=== PATIENT | male | born 1965 | race Caucasian/White ===

== ENCOUNTER 2016-10-20 11:30 | Observation (INO) | payer BC ==
[~2016-10-20] VITALS: Ht 185.4 cm; Wt 83.5 kg
[2016-10-20 12:07] VITALS: BP 136/90; BMI 23.9
--- NOTE | 2016-10-20 12:15 | NUR ---
RECEIVED PATIENT VIA WHEELCHAIR A DIRECT ADMIT FROM [facility] WITH ABDOMINAL PAIN AND NAUSEA. ACCOMPANIED BY FAMILY. RATES PAIN 8-05/07. ADMISSION WORK COMPLETED. IV SITED TO RIGHT WRIST X1 STICK WITH 20G CATHETER.
[2016-10-20] MEDS ORDERED: MIRALAX17 GM PO (12:19)
[2016-10-20] MEDS ORDERED: ADDERALL 20 MG20 M1 PO (12:20)
--- NOTE | 2016-10-20 13:09 | NUR ---
DILAUDID 0.5MG ADMINISTERED PER ORDERS FOR C/O PAIN 05/07.
[2016-10-20 13:13] LABS: BASOPHILS 0 % (0.0-2.0); EOSINOPHILS 0.1 % (0-7); HEMATOCRIT 44.2 % (42.0-54.0); HEMOGLOBIN 15.3 g/dL (13.5-17.5); IMMATURE GRANULOCYTES 0.3 % (0-5); LYMPHOCYTES 10.4 % (15-50); MCH 30.4 pg (26.0-34.0); MCHC 34.6 g/dL (31.0-37.0); MCV 87.9 fL (80.0-100.0); MEAN PLATELET VOLUME 9.4 fL (7.4-10.4); MONOCYTES 10.2 % (2-11); PLATELET COUNT 249 10x3/uL (130-400); RBC 5.03 10x6/uL (4.20-6.10); RDW 12.5 % (11.5-14.5); WBC 18.1 10x3/uL (4.8-10.8)
[2016-10-20 13:33] LABS: ALBUMIN 3.7 g/dL (3.4-5.0); ALKALINE PHOSPHATASE 62 U/L (46-116); ALT (SGPT) 17 U/L (10-68); AMYLASE - SERUM 37 U/L (25-115); CALC OSMOLALITY 270 mosm/kg (275-300); CALCIUM 9.3 mg/dL (8.5-10.1); CARBON DIOXIDE 29.8 mmol/L (21.0-32.0); CHLORIDE - SERUM 100 mmol/L (98-107); CREATININE - SERUM 0.9 mg/dL (0.6-1.3); GLUCOSE 103 mg/dL (74-106); LIPASE 178 U/L (73-393); POTASSIUM - SERUM 3.8 mmol/L (3.5-5.1); PROTEIN - SERUM 7.4 g/dL (6.4-8.2); SODIUM 136 mmol/L (136-145); UREA NITROGEN 11 mg/dL (7-18); eGFR NON AFRICAN AMERICAN > 90 mL/min (90-120)
--- NOTE | 2016-10-20 18:00 | NUR ---
RECEIVED FROM [facility] POST APPENDECTOMY. VS STABLE. THREE SURGICAL INCISIONS TO LEFT ABDOMEN. BANDAIDS INTACT. FAMILY AT BEDSIDE.
[2016-10-20 18:06] VITALS: BP 102/68
--- NOTE | 2016-10-20 19:32 | NUR ---
AWAKE,ALERT. TRAMADOL 50 MG GIVEN PO PER REQUEST FOR PAIN 04/06. NS INFUSING TO RIGHT FOREARM WITHOUT REDNESS OR EDEMA NOTED. BANDAIDS INTACT TO ABD INCISIONS WIHTOUT DRAINAGE NOTED. TOLERATING CL LIQUID DIET. CL IN REACH.
[2016-10-21] VITALS: BP 120/69
--- NOTE | 2016-10-21 02:07 | NUR ---
AROUSES EASILY TO VERBAL STIMULE. NO DISTRESS NOTED. CL IN REACH.
[2016-10-21 04:00] VITALS: BP 133/62
--- NOTE | 2016-10-21 05:09 | NUR ---
PT IS ASLEEP WITH EASY RESPIRATIONS AND NO DISTRESS NOTED. THE ROOM IS DARK WITH THE TV ON THE ONLY LIGHT. THE BED IS LOW, RAILS UP X'S 2 WITH THE CALL LIGHT AT HAND.
--- NOTE | 2016-10-21 05:18 | NUR ---
AWAKE,COMPLAINS OF INCISIONAL PAIN. DILAUDID 0.5 MG GIVEN PER REQUEST. CL IN REACH.
[2016-10-21 05:43] LABS: BASOPHILS 0.1 % (0.0-2.0); EOSINOPHILS 0.1 % (0-7); HEMOGLOBIN 13.1 g/dL (13.5-17.5); IMMATURE GRANULOCYTES 0.3 % (0-5); LYMPHOCYTES 16.5 % (15-50); MCH 30.2 pg (26.0-34.0); MCHC 33.6 g/dL (31.0-37.0); MEAN PLATELET VOLUME 9.8 fL (7.4-10.4); MONOCYTES 10.9 % (2-11); NEUTROPHILS 72.1 % (40-80); PLATELET COUNT 278 10x3/uL (130-400); RBC 4.34 10x6/uL (4.20-6.10); RDW 12.9 % (11.5-14.5); WBC 14.5 10x3/uL (4.8-10.8)
[2016-10-21 06:00] LABS: BILIRUBIN - TOTAL 0.8 mg/dL (0.2-1.3); CALCIUM 8.6 mg/dL (8.5-10.1); CARBON DIOXIDE 27.3 mmol/L (21.0-32.0); PROTEIN - SERUM 6.4 g/dL (6.4-8.2)
[2016-10-21 06:10] LABS: MCV 89.9 fL (80.0-100.0)
[2016-10-21 06:13] LABS: ANION GAP 12.1 mmol/L (8-16); CREATININE - SERUM 1.3 mg/dL (0.6-1.3); POTASSIUM - SERUM 4.4 mmol/L (3.5-5.1)
--- NOTE | 2016-10-21 07:22 | NUR ---
PT SITTING IN BED, STATES HE'S ONLY IN PAIN WHEN HE MOVES A CERTAIN WAY, NO OTHER COMPLAINTS, BED LOWEST POSITION, CALL LIGHT IN REACH, WILL CONTINUE TO MONITOR
--- NOTE | 2016-10-21 08:40 | NUR ---
PT SEEN FOR INVOICE CONTROL CLERK NOTE. STATES PAIN IS CONTROLLED AT 6 PRESENTLY-WAS AT A 8 WHEN TRAMADOL GIVEN EARILER. INSTRUCTED PATIENT THAT HE WILL NEED TO BE OUT OF BED AND AMBULATING IN HALLWAY LATER THIS AM. PASSING GAS. FAMILY AT BEDSIDE. CALL LIGHT IN REACH
[2016-10-21 08:43] VITALS: BP 113/69
--- NOTE | 2016-10-21 12:16 | NUR ---
PT SITTING IN CHAIR, SLIGHT ABD PAIN, NO OTHER COMPLAINTS, WILL CONTINUE TO MONITOR
[2016-10-21 12:31] VITALS: Ht 185.4 cm; Wt 83.5 kg
[2016-10-21 12:54] VITALS: BP 130/75
[2016-10-21] MEDS ORDERED: ULTRAM50 MG PO (13:13)
--- NOTE | 2016-10-21 13:33 | OP ---
PATIENT NAME: DEBBIE PALOMO MEDICAL RECORD: [id number] :67 LOCATION:[id number] ADMISSION DATE:10/20/16 SURGEON: TEJ LOYA MD DATE OF OPERATION: 10/20/2016 PREOPERATIVE DIAGNOSIS: Acute appendicitis with localized peritonitis. POSTOPERATIVE DIAGNOSIS: Acute appendicitis with localized peritonitis. PROCEDURE: 1. Laparoscopic appendectomy. 2. Lysis of adhesions. SURGEON: Tej Loya MD REPORT OF PROCEDURE: The patient's abdomen was prepped and draped in sterile fashion. A cutdown was made on the superior aspect of the umbilicus, 0 Vicryls were placed in the fascia bilaterally and the fascia was incised with a 15-blade. I then bluntly entered the peritoneal cavity and placed a 12-mm Dhruv port. Under direct visualization, a 5 mm trocar was placed in the left lower quadrant and another was placed in the suprapubic region. There were some adhesions present in the midline of the omentum to the anterior abdominal wall. These were teased down carefully with blunt dissection. We then were able to visualize the patient's appendix. It was inflamed but not perforated. There were no signs of gangrene. We were able to elevate the appendix and made a window between the base of the appendix and the mesoappendix. The base of the appendix was transected with 45 blue load Endo-PRETTY stapler. The mesoappendix was then transected with 2 fires of a 45 white load Endo-PRETTY stapler. We placed the appendix into an Endo Catch bag. We then irrigated out the abdomen and stopped any bleeding, which was visualized. At this point, the ports and insufflation were then removed and the appendix was taken out through the umbilicus. The umbilical fascia was closed with interrupted 0 Vicryls times 4. The wounds were irrigated out with normal saline and infused with 10 mL of 0.25% Marcaine with epinephrine. The skin incisions were all closed with subcutaneous 5-0 Monocryl and dressed appropriately. COMPLICATIONS: None. CONDITION: Stable. ANESTHESIA: General endotracheal and local. BLOOD LOSS: Minimal. TRANSINT:[id number] Voice Confirmation ID: [id number] DOCUMENT ID: [id number] TEJ LOYA MD at [id number] CC: [id number] DICTATION DATE: 10/20/16 173 COMPUTER ART INSTRUCTOR: 10/20/16 2143 ADM IN [facility] [address] [id number]
--- NOTE | 2016-10-21 14:24 | NUR ---
PT RESTING IN BED, EASILY AROUSED, NO COMPLAINTS AT THIS TIME, CALL LIGHT IN REACH, BED LOWEST POSITION, SIDE RAILS UP X2, WILL CONTINUE TO MONITOR
[2016-10-21 16:53] VITALS: BP 126/69
--- NOTE | 2016-10-21 20:00 | NUR ---
PT IS RESTING IN BED WITH EYES OPEN. ALERT AND ORIENTED X 3. DENIES ACUTE DISCOMFORT AT THIS TIME. PT DENIES HAVING ANY FLATUS OR URGE TO DO SO. SCD'S ARE ON. IV INFUSING TO RIGHT WRIST WITHOUT DIFFICULTY. NO REDNESS OR EDEMA NOTED AT THE INSERTION SITE. SR'S ARE UP X 3 IN BED. CALL LIGHT AND BEDSIDE TABLE ARE WITHIN EASY REACH.
[2016-10-21 21:00] VITALS: BP 111/69
--- NOTE | 2016-10-21 22:21 | NUR ---
PT IS RESTING IN BED WATCHING TV. NO NEEDS VOICED.
--- NOTE | 2016-10-21 23:58 | NUR ---
PT IS RESTING IN BED WITH EYES CLOSED.
[2016-10-22 02:15] VITALS: BP 114/68
--- NOTE | 2016-10-22 02:35 | NUR ---
PT RESTING IN BED WITH EYES CLOSED. NO DISTRESS NOTED.
[2016-10-22 04:00] VITALS: BP 112/61
--- NOTE | 2016-10-22 04:38 | NUR ---
PT IS RESTING QUIETLY IN BED WITH EYES CLOSED. NO DISTRESS NOTED.
[2016-10-22 06:49] LABS: BASOPHILS 0.2 % (0.0-2.0); EOSINOPHILS 0.4 % (0-7); HEMATOCRIT 31.8 % (42.0-54.0); HEMOGLOBIN 10.4 g/dL (13.5-17.5); IMMATURE GRANULOCYTES 0.2 % (0-5); LYMPHOCYTES 24.1 % (15-50); MCH 29.5 pg (26.0-34.0); MCHC 32.7 g/dL (31.0-37.0); MCV 90.3 fL (80.0-100.0); MEAN PLATELET VOLUME 9.3 fL (7.4-10.4); MONOCYTES 13.3 % (2-11); NEUTROPHILS 61.8 % (40-80); PLATELET COUNT 235 10x3/uL (130-400); RBC 3.52 10x6/uL (4.20-6.10); RDW 12.6 % (11.5-14.5); WBC 9.1 10x3/uL (4.8-10.8)
[2016-10-22 07:08] LABS: ALBUMIN 2.6 g/dL (3.4-5.0); ALKALINE PHOSPHATASE 56 U/L (46-116); ALT (SGPT) 15 U/L (10-68); CALC OSMOLALITY 267 mosm/kg (275-300); CALCIUM 8.2 mg/dL (8.5-10.1); CARBON DIOXIDE 29.2 mmol/L (21.0-32.0); CHLORIDE - SERUM 99 mmol/L (98-107); GLUCOSE 106 mg/dL (74-106); POTASSIUM - SERUM 3.9 mmol/L (3.5-5.1); SODIUM 134 mmol/L (136-145); UREA NITROGEN 12 mg/dL (7-18); eGFR NON AFRICAN AMERICAN 84 mL/min (90-120)
--- NOTE | 2016-10-22 07:23 | NUR ---
PT SITTING IN BED, SOME COMPLAINTS OF PAIN FROM GAS PAIN, NO OTHER COMPLAINTS, BED LOWEST POSITION, CALL LIGHT IN REACH, SIDE RAILS UP X2, WILL CONTINUE TO MONITOR
[2016-10-22 10:36] VITALS: BP 109/58
[2016-10-22 11:32] VITALS: BP 113/64
--- NOTE | 2016-10-22 12:45 | NUR ---
PATIENT SITTING UP IN BED WITH NO COMPLAINTS AT THIS TIME. IV INTACT. CALL LIGHT WITHIN REACH.
--- NOTE | 2016-10-22 13:24 | NUR ---
WALKED 3 LAPS AROUND THE FLOOR
[2016-10-22 15:12] VITALS: BP 111/52
--- NOTE | 2016-10-22 18:05 | NUR ---
DISCHARGE PAPER AND INSTRUCTIONS GIVEN TO PATIENT AND SPOUSE, QUESTIONS ANSWERED, IV REMOVED WITH TIP INTACT, DISCHARGED PER WC WITH BELONGINGS
== END 2016-10-22 18:13 | disposition home or self-care (01) ==
LOC: OBSVTIME 11:30 → D.MS 11:30
PROVIDERS: ADMIT Family Medicine
DX: K35.3 Acute appendicitis with localized peritonitis (principal); K66.0 Peritoneal adhesions (postprocedural) (postinfection); F17.200 Nicotine dependence, unspecified, uncomplicated